=== PATIENT | female | born 1960 | race Caucasian/White ===

== ENCOUNTER 2017-05-14 15:21 | Emergency (ER) | payer OTHER, BC ==
--- NOTE | 2017-05-14 16:26 | EDM.PDOC ---
ED HPI GENERAL MEDICAL PROBLEM - General Chief Complaint: Head Injury Stated Complaint: FELL AND HIT HEAD AT WORK Time Seen by Provider: 05/14/17 16:15 Source of Information: Reports: Patient History Limitations: Reports: No Limitations - History of Present Illness INITIAL COMMENTS - FREE TEXT/NARRATIVE: Patient is a 56-year-old female presents ED complaining of a small bump to the posterior aspect of her head. Patient states she was working at [employer] on the first rung of the ladder and fell landing on her butt, then back, and hitting the back of her head. There was no loss of consciousness. Patient was able to get up on her own accord with no difficulties. She denies any neck or back pain. - Related Data Allergies Allergy/AdvReac Type Severity Reaction Status Date / Time carbamazepine [From Tegretol] Allergy Hives Verified 05/14/17 16:06 metronidazole [From Flagyl] Allergy Hives Verified 05/14/17 16:06 Home Meds: Home Meds . [No Known Home Meds] 05/14/17 [History] ED ROS GENERAL - Review of Systems Review Of Systems: See Below HEENT: Denies: Vision Change GI/Abdominal: Denies: Nausea, Vomiting Musculoskeletal: Denies: Neck Pain, Back Pain Neurological: Denies: Confusion, Dizziness, Headache, Numbness, Tingling, Difficulty Walking, Weakness ED EXAM, HEAD INJURY - Physical Exam Exam: See Below Exam Limited By: No Limitations General Appearance: Alert, WD/WN, No Apparent Distress Head: Other (Small less than 2 cm hematoma barely palpable to the posterior aspect of the head. No abrasions or open wounds present. No bony abnormalities present. Minimal pain increased on palpation.) Nexus Criteria: No: Posterior, Midline Cervical Tenderness, Evidence of Intoxication, Altered Level of Consciousness, Focal Neurological Deficit, Painful Distraction Injuries Eyes: Bilateral Eye: EOMI, PERRL Ears: Normal External Exam, Hearing Grossly Normal Nose: Normal Inspection Throat/Mouth: Normal Voice, No Airway Compromise Neck: Non-Tender, Full Range of Motion, Normal Alignment, Normal Inspection Respiratory: No Respiratory Distress, Lungs Clear, Normal Breath Sounds, No Accessory Muscle Use, Chest Non-Tender Cardiovascular: Normal Peripheral Pulses, Regular Rate, Rhythm Back Exam: Normal Inspection, Full Range of Motion. No: Paraspinal Tenderness, Vertebral Tenderness Extremities: Normal Inspection, Normal Range of Motion, Non-Tender Neurologic: buffer copper II-XII nml As Tested, No Motor/Sensory Deficits, Alert, Normal Mood/Affect, Oriented x 3 Skin: Normal Color, Warm/Dry Course - Vital Signs Last Recorded V/S: Last Vital Signs Temp 96.6 F 05/14/17 16:02 Pulse 62 05/14/17 16:02 Resp 18 05/14/17 16:02 BP 171/104 H 05/14/17 16:02 Pulse Ox 100 05/14/17 16:02 - Re-Assessments/Exams Free Text/Narrative Re-Assessment/Exam: On examination patient has a small bump to the posterior aspect of her head with no wounds or bony abnormalities present. On physical examination there is no concerning findings. Will discharge patient home with instructions as documented. Departure - Departure Time of Disposition: 16:29 Disposition: Home, Self-Care 01 Condition: Good Clinical Impression: Head contusion Qualifiers: Encounter type: initial encounter Contusion of head detail: scalp Qualified Code(s): S00.03XA - Contusion of scalp, initial encounter - Discharge Information Instructions: Facial or Scalp Contusion, [id number], Head Injury, Adult, Easy -to-Read Referrals: PCP,None [Primary Care Provider] - Forms: ED Department Discharge, ED Return to Work/School Form Additional Instructions: As discussed bun to the posterior aspect her head is small in nature with no concerning findings. He should develop worsening headache, focal neurological deficits, nausea/vomiting, difficult to walking, or neck or back pain please return back to the ED. May return back to work with no distractions. Return back to the ED for any new or worsening symptoms. Can apply ice to the affected area as needed for discomfort. Utilize Tylenol and ibuprofen in alternating fashion for pain.
== END 2017-05-14 16:53 | disposition home or self-care (01) ==
LOC: JD.ED 15:21
DX: S00.03XA Contusion of scalp, initial encounter (principal); Z88.8 Allergy status to other drugs, medicaments and biological substances; Z88.1 Allergy status to other antibiotic agents; W11.XXXA Fall on and from ladder, initial encounter
CPT/HCPCS: 99282; 99283